=== PATIENT | male | born 1955 | race Caucasian/White ===

== ENCOUNTER → 2019-04-21 | Outpatient (CLI) | payer BC | LOC: CARD 07:51 | PROVIDERS: ATTEND Internal Medicine | DX: I48.0 Paroxysmal atrial fibrillation (principal) | CPT/HCPCS: 93225; 93226 ==

== ENCOUNTER → 2019-11-07 | Outpatient (CLI) | payer BC ==
[~2019-11-07] MED LIST: GADOBUTROL 10 MMOL/10 ML (GADAVIST) VIAL IV ONE
[2019-11-07 08:06] LABS: BUN/CREATININE RATIO 16; CREATININE SERUM 1.13 MG/DL (0.60-1.30); GFR ESTIMATED > 60
--- NOTE | 2019-11-07 10:06 | Diagnostic Imaging Report ---
CLINICAL INDICATION: Patient had decompression surgery behind left ear to remove pressure on vessel and nerve. The patient has tingling/numbness from left ear down to the left arm and loss of strength in left hand and fingers. EXAM: MRI of the brain performed without and with 10 cc of Gadavist IV contrast. Sequences include axial DWI, ADC map, axial gradient echo, axial T2, axial FLAIR, sagittal FLAIR, axial T1, axial T1 post IV contrast, coronal T1 fat-sat post IV contrast, and sagittal T1 post IV contrast. COMPARISON: None. FINDINGS: There are postoperative changes with partial lateral left occipital bone craniectomy with prosthetic flap in place. There are surgical changes to the left posterior fossa region related to history of decompression of the vessel and nerve. There is no abnormal IV contrast enhancement or mass seen. Cerebellopontine angle, visualized portion of the IACs, posterior fossa is unremarkable. There is no evidence of acute cerebral infarct, intracranial hemorrhage, or gross mass effect. There is no abnormal contrast enhancement. The brain parenchymal volume appears appropriate for patient's age. There are multiple focal and patchy areas of high T2 signal white matter changes involving both cerebral hemispheres, likely related to chronic small vessel ischemic disease. There is normal brooks-white matter distinction. There is no significant midline shift or herniation. The [place] vascular structures show no gross abnormality as visualized. The pituitary gland, sella, and suprasellar regions are unremarkable as visualized. There is no evidence of hydrocephalus. The basal cisterns are unremarkable. The skull, extracranial soft tissue, and orbits are unremarkable. There is moderate mucosal thickening involving left maxillary sinus. There is mild mucosal thickening involving the frontal sinus, ethmoid sinus, right maxillary sinus. Temporal bones show no significant abnormality. IMPRESSION: 1: There are postoperative changes to the left posterior fossa region related to decompressive surgery. There is no abnormal IV contrast enhancement or mass seen. Of note, the cranial nerves are not well visualized on this study. If further evaluation is necessary, then high-resolution thin cut MRI of the IACs with and without contrast would better evaluate. 2: Age-related brain parenchymal changes. 3: [id number] paranasal sinus disease. Dictated by: Dictated on workstation # [id number]
== END ==
LOC: RAD 07:39
PROVIDERS: ATTEND Neurological Surgery
DX: R20.2 Paresthesia of skin (principal); Z98.890 Other specified postprocedural states
CPT/HCPCS: 36415; 70553; 82565; 84520

== ENCOUNTER → 2023-06-14 | Outpatient (CLI) | payer BC ==
--- NOTE | 2023-06-14 11:07 | Diagnostic Imaging Report ---
INDICATION: CKD 3B, ESSENTIAL HYPERTENSION TECHNIQUE: Multiple real-time grayscale sonographic images, color and duplex Doppler images were obtained of the urinary system. FINDINGS: Aortic velocity: 69 cm/sec. RIGHT kidney: Size: 11.1 x 5.7 x 5.4 cm Right renal cysts are present, largest superior lateral pole, 5.2 cm. Renal parenchyma is otherwise unremarkable. No hydronephrosis. The right renal artery is visualized in its proximal, mid and distal aspect. Maximum renal artery velocity: 87cm/sec Maximum renal artery/aortic ratio: 1.3 LEFT kidney: Size: 11.1 x 6.1 x 6.1 cm Left renal cysts are present, largest superior lateral pole, 4 cm. Renal parenchyma is otherwise unremarkable. No hydronephrosis. The left renal artery is visualized in its proximal, mid and distal aspect. Maximum renal artery velocity: 75cm/sec Maximum renal artery/aortic ratio: 1.1 Bladder: Not imaged. IMPRESSION: 1. Unremarkable renal ultrasound with Doppler. (RA/AO ratios > 3.0 may suggest potential hemodynamically significant stenosis.) Dictated by: Dictated on workstation # [id number]
== END ==
LOC: RAD 08:23
PROVIDERS: ATTEND Internal Medicine Nephrology
DX: I12.9 Hypertensive chronic kidney disease with stage 1 through stage 4 chronic kidney disease, or unspecified chronic kidney disease (principal); N18.32 Chronic kidney disease, stage 3b
CPT/HCPCS: 76770; 93975

== ENCOUNTER → 2023-06-28 | Outpatient (CLI) | payer BC | LOC: LAB 09:30 | PROVIDERS: ATTEND Internal Medicine Nephrology | DX: I12.9 Hypertensive chronic kidney disease with stage 1 through stage 4 chronic kidney disease, or unspecified chronic kidney disease (principal); N18.32 Chronic kidney disease, stage 3b | CPT/HCPCS: 36415; 84155; 84165; 84166 ==